=== PATIENT | female | born 1950 | race Caucasian/White ===

== ENCOUNTER → 2017-05-03 21:19 | Outpatient (CLI) | payer OTHER ==
[2015-07-30 15:19] VITALS: BMI 39.4
[~2017-05-03 21:19] MED LIST: ADVAIR 500/501 DISK INH; ALENDRONATE SOD70 MG PO; BACLOFEN10 MG PO; CITRACAL + D E1 EACH PO; COREG12.5 MG PO; DULERA 100 MCG8.8 GM INH; ESTRACE2 MG PO; FIORICET-COD 51 EACH PO; FLUTICASONE PRO16 GM NASAL; HYDROCODON-ACE1 EAC7 PO; LASIX20 MG PO; NEURONTIN 300300 MG PO; PATADAY2.5 ML EACH EYE; PHENERGAN25 M1 PO; POLY HIST FORTE; PRADAXA150 MG PO; PRAVACHOL40 MG PO; PRILOSEC20 MG PO; PROAIR HFA8.5 GM INH; PROTONIX40 MG PO; REGLAN10 MG PO; RYTHMOL150 MG PO; SINGULAIR10 MG PO; STOOL SOFTENER240 MG PO; ULTRAM50 MG PO; VESICARE10 MG PO; VISTARIL25 MG PO; ZANTAC150 MG PO
== END | disposition home or self-care (01) ==
LOC: D.LABREF 21:19
DX: R31.9 Hematuria, unspecified (principal)

== ENCOUNTER → 2017-05-09 15:24 | Outpatient (CLI) | payer MEDICARE ==
[2015-07-30 15:19] VITALS: BMI 39.4
== END | disposition home or self-care (01) ==
LOC: D.CT 15:24
DX: R31.0 Gross hematuria (principal)

== ENCOUNTER → 2017-09-10 08:41 | Outpatient (CLI) | payer MEDICARE ==
[2015-07-30 15:19] VITALS: BMI 39.4
== END | disposition home or self-care (01) ==
LOC: D.RAD 08:41
DX: R10.9 Unspecified abdominal pain (principal)

== ENCOUNTER 2018-10-09 06:20 | Day surgery (SDC) | payer MEDICARE ==
[2018-10-08 14:54] LABS: HEMATOCRIT 42.9 % (36.0-48.0); HEMOGLOBIN 14.2 g/dL (12-16); MCH 29.5 pg (26.0-34.0); MCHC 33.1 g/dL (31.0-37.0); MEAN PLATELET VOLUME 10.7 fL (7.4-10.4); RBC 4.82 10x6/uL (4.00-5.40); RDW 14.1 % (11.5-14.5); WBC 11.3 10x3/uL (4.8-10.8)
[2018-10-08 15:03] LABS: INR 1.1 (0.85-1.17); PROTIME 13.7 SECONDS (11.6-15.0)
[2018-10-08 15:04] LABS: APTT 30.5 SECONDS (22.8-39.4)
[2018-10-08 15:18] LABS: ANION GAP 15.2 mmol/L (8-16); CALCIUM 8.5 mg/dL (8.5-10.1); CARBON DIOXIDE 27.9 mmol/L (21.0-32.0); CREATININE - SERUM 0.9 mg/dL (0.6-1.3); POTASSIUM - SERUM 4.1 mmol/L (3.5-5.1)
[~2018-10-09 06:20] MED LIST changes: +ELIQUIS5 MG PO; +ZOLOFT25 MG PO
[2018-10-09 07:01] VITALS: BP 128/68; BMI 32.0
--- NOTE | 2018-10-09 07:23 | NUR ---
PT STATES THAT SHE WAS INSTRUCTED BY NURSE AT CLINIC TO CONTINUE TAKING ELIQUIS UNTIL DAY BEFORE SURGERY
--- NOTE | 2018-10-09 10:26 | NUR ---
[address] DR[address] CHRISTENSEN ROUNDED.
--- NOTE | 2018-10-09 10:56 | OP ---
PATIENT NAME: BRIEN JACKSON MEDICAL RECORD: [id number] :52 LOCATION:D[facility] ADMISSION DATE: SURGEON: HONG CHRISTENSEN MD DATE OF OPERATION: 10/09/2018 SURGEON: Hong Christensen MD ANESTHESIA: TIVA by Hugh Lima CRNA DIAGNOSES: Interstitial cystitis, urge urinary incontinence, urethral stricture. PROCEDURE: Urethral stricture dilation, cystoscopy, hydrodistention of the bladder, intravesical Botox injection 100 units, intravesical Rimso instillation. FINDINGS: Urethral stenosis, single ureteral orifices bilaterally with no bladder tumors. Diffuse bladder inflammation. ESTIMATED BLOOD LOSS: Minimal. CLINICAL HISTORY: This is a 68-year-old female whom I saw last year for hematuria. She was on Eliquis for chronic atrial fibrillation. Cystoscopy in 07/23/2017 showed chronic bladder inflammation. I did suggest the cystoscopy and intravesical Rimso instillation last year, but she did not want to have it done at that time because she could not afford it. She has increased suprapubic pain, which radiates into the vaginal area. She also has urge urinary incontinence. I gave her Myrbetriq 50 mg samples, but this did not help. She is interested in having cystoscopy, hydrodistention, intravesical Botox injection for the urge incontinence and intravesical Rimso for interstitial cystitis. SHE IS ALLERGIC TO LIPITOR AND DIPHTHERIA TOXOID. She was given Ancef stone operator to the OR. DESCRIPTION OF PROCEDURE: The patient was given IV sedation. She was then placed into lithotomy position and prepped and draped. The urethra was quite stenotic and I could not fit the 17-[place] cystoscope. We therefore used sounds and dilated the urethra to 22-[place]icar[place]uan. A 20-[place]icar[place] scope could then be entered into the bladder. Findings are as outlined above. I distended the bladder to about 600 mL capacity and held it there while we injected the intravesical Botox. The Botox was injected in 10 different locations, sparing the ureteral orifices and the trigone. At each location, 1 cc of the solution was injected. Each mL of Botox solution had 10 units of Botox dissolved in it. Therefore, she had a total of 100 units given to the entire bladder. Once this was done, the bladder was emptied through the scope sheath and the scope was removed. A red rubber catheter was then introduced into the bladder. Through the red rubber catheter, we instilled 50 mL of Rimso solution into the bladder and then removed the catheter. She will hold the Rimso solution in place for about 15 minutes and then void it out. I will see her in followup in 2 weeks' time to check on her response. TRANSINT:[id number] Voice Confirmation ID: [id number] DOCUMENT ID: [id number] OPERATIVE REPORT [id number] BRIEN JACKSON ROBERT S MD at 1056 CC: [id number] DICTATION DATE: 10/09/18 0955 VOLUNTEER PATIENT REPRESENTATIVE: 10/09/18 1019 [facility] [address] [place] [address]
== END 2018-10-09 11:05 | disposition home or self-care (01) ==
LOC: D.OPS 06:20
PROVIDERS: Anesthesiology; ATTEND Urology
DX: N30.10 Interstitial cystitis (chronic) without hematuria (principal); N39.41 Urge incontinence; N35.92 Unspecified urethral stricture, female; Z01.812 Encounter for preprocedural laboratory examination; I48.2 Chronic atrial fibrillation; Z79.01 Long term (current) use of anticoagulants

== ENCOUNTER 2018-11-14 08:00 | Outpatient (CLI) | payer MEDICARE | END 2018-11-14 23:59 | disposition home or self-care (01) | LOC: D.MAMMO 08:00 | PROVIDERS: ATTEND Internal Medicine | DX: Z12.31 Encounter for screening mammogram for malignant neoplasm of breast (principal) ==